=== PATIENT | male | born 1990 | race Hispanic/Latino ===

== ENCOUNTER → 2022-10-23 | Outpatient (CLI) | payer MEDICAID ==
[~2022-10-23] VITALS: Ht 172.7 cm; Wt 89.0 kg
[~2022-10-23] MED LIST: AMLO-257 PO; ASPI-1026 PO; ATOR40TA71 PO; CARV25TA PO; CEFAZOLIN SODIUM 2 GM VIAL IVPB SCH; FAMO20TA8 PO; SEVE800T27 PO; VITA1TAB22 PO
[2022-10-23 10:56] LABS: BASOPHILS % (AUTO) 0.8 % (0.0-5.0); EOSINOPHILS % (AUTO) 1.3 % (0.0-8.0); HEMATOCRIT 42.3 % (42-54); LYMPHOCYTES % (AUTO) 33.4 % (21.0-51.0); MEAN CORPUSCULAR HEMOGLOBIN 30.6 pg (27.0-33.0); MEAN CORPUSCULAR HGB CONC 32.6 g/dL (32.0-36.0); MEAN CORPUSCULAR VOLUME 93.8 fL (79-99); MONOCYTES % (AUTO) 8.8 % (3.0-13.0); NEUTROPHILS % (AUTO) 55.2 % (40.0-77.0); PLATELET COUNT (AUTO) 222 K/uL (130-400); RED BLOOD CELL COUNT(AUTO) 4.51 MIL/uL (4.50-6.20); RED CELL DISTRIBUTION WIDTH 17.5 % (11.0-15.5); WHITE BLOOD COUNT (AUTO) 9.7 K/uL (4.8-10.8)
[2022-10-23 11:02] LABS: PROTHROMBIN TIME 10.9 SEC (9.6-11.6)
[2022-10-23 11:03] LABS: PARTIAL THROMBOPLASTIN TIME 28.4 SEC (26.3-35.5)
[2022-10-25 09:32] VITALS: BP 102/52
== END | disposition home or self-care (01) ==
LOC: DAH 10:00 → EDSTATUS 10:00
PROVIDERS: ATTEND Student in an Organized Health Care Education/Training Program
DX: Z01.810 Encounter for preprocedural cardiovascular examination (principal); N18.6 End stage renal disease; Z20.822 Contact with and (suspected) exposure to COVID-19; Z53.8 Procedure and treatment not carried out for other reasons
CPT/HCPCS: 71045; 87426; 85025; 85610; 85730; 86850; 86900; 86901; 36415; 93005; A6260

== ENCOUNTER 2023-01-04 07:09 | Day surgery (SDC) | payer MEDICAID ==
[2023-01-01 10:22] LABS: BASOPHILS % (AUTO) 1.1 % (0.0-5.0); HEMATOCRIT 40.8 % (42-54); LYMPHOCYTES % (AUTO) 26.9 % (21.0-51.0); MEAN CORPUSCULAR HEMOGLOBIN 31.3 pg (27.0-33.0); MEAN CORPUSCULAR HGB CONC 33.1 g/dL (32.0-36.0); MEAN CORPUSCULAR VOLUME 94.7 fL (79-99); MONOCYTES % (AUTO) 9.2 % (3.0-13.0); NEUTROPHILS % (AUTO) 60.5 % (40.0-77.0); PLATELET COUNT (AUTO) 251 K/uL (130-400); RED BLOOD CELL COUNT(AUTO) 4.31 MIL/uL (4.50-6.20); RED CELL DISTRIBUTION WIDTH 13.5 % (11.0-15.5); WHITE BLOOD COUNT (AUTO) 7.8 K/uL (4.8-10.8)
[2023-01-01 10:23] VITALS: BP 136/79
[2023-01-01 10:34] LABS: PROTHROMBIN TIME 10.9 SEC (9.6-11.6)
[2023-01-01] MEDS: CEFAZOLIN SODIUM 2 GM VIAL IVPB SCH (11:30)
[2023-01-04] VITALS (15 sets, daily range): BP systolic 89–126; BP diastolic 42–80
[~2023-01-04] VITALS: Ht 172.7 cm; Wt 96.1 kg
[~2023-01-04 07:09] MED LIST changes: +AURYXIA PO; -CEFAZOLIN SODIUM 2 GM VIAL IVPB SCH; -SEVE800T27 PO; +SEVE800T7 PO; +TORS100T16 PO; -VITA1TAB22 PO
[2023-01-04] MEDS ORDERED: 0.9% NACL 500ML IV.SOLN 500 ML IV ONE (07:16)
[2023-01-04 08:01] LABS: POTASSIUM 4.5 mmol/L (3.5-5.1)
[2023-01-04 08:07] LABS: CREATININE 11.1 mg/dL (0.5-1.5)
[2023-01-04] MEDS ORDERED: MIDAZOLAM HCL 1 MG/ML 2ML VIAL ONE (08:15)
[2023-01-04] MEDS ORDERED: FENTANYL CITRATE PF 50 MCG/1 ML 2ML VIAL ONE (08:15)
[2023-01-04] MEDS ORDERED: PROPOFOL 10 MG/ML 20ML VIAL IV ONE (08:15)
[2023-01-04] MEDS ORDERED: ROCURONIUM 10MG/1ML SYR 10 MG/ML ML ONE (08:16)
[2023-01-04] MEDS ORDERED: ROPIVACAINE 0.5% 5MG/ML 30ML IJ ONE (08:20)
[2023-01-04] MEDS ORDERED: LIDOCAINE 2%-EPI 1:200,000 20 ML VIAL IJ ONE (08:21)
[2023-01-04] MEDS: CEFAZOLIN SODIUM 2 GM VIAL IVPB SCH (08:30)
[2023-01-04] MEDS ORDERED: PHENYLEPHRINE HCL 10 MG/ML 1ML VIAL IV ONE ×2 (08:50)
[2023-01-04] MEDS ORDERED: EPHEDRINE SULFATE 50 MG/ML AMPULE ONE (09:01)
[2023-01-04] MEDS ORDERED: ONDANSETRON 4MG INJ ONE (09:17)
[2023-01-04] MEDS ORDERED: NEOSTIGMINE 5MG/5ML SYR IV ONE (09:35)
[2023-01-04] MEDS ORDERED: GLYCOPYRROLATE 1 MG/5 ML SYRINGE ONE (09:35)
== END 2023-01-04 11:20 | disposition home or self-care (01) ==
LOC: DAH 07:09
PROVIDERS: ATTEND Student in an Organized Health Care Education/Training Program
DX: I12.0 Hypertensive chronic kidney disease with stage 5 chronic kidney disease or end stage renal disease (principal); Z20.822 Contact with and (suspected) exposure to COVID-19; N18.6 End stage renal disease; K21.9 Gastro-esophageal reflux disease without esophagitis; J45.909 Unspecified asthma, uncomplicated; F41.9 Anxiety disorder, unspecified; Z82.49 Family history of ischemic heart disease and other diseases of the circulatory system; Z99.2 Dependence on renal dialysis; Z86.73 Personal history of transient ischemic attack (TIA), and cerebral infarction without residual deficits
CPT/HCPCS: 85025; 85610; 85730; 86850; 86900; 86901; 87426; 36415 ×2; 71045; 93005; 64417; 36821; 80048; A6260; A4663; J7040; J3010; J3490 ×4; J2710; J2250; J2405; J1644; J2795; J2370 ×2; J0690; G0168; A4649 ×2; C1713 ×2; A4215; A4223; A4222; A4221; J2704